=== PATIENT | female | born 1980 | race Caucasian/White ===

== ENCOUNTER 2018-06-21 09:46 | Emergency (ER) | payer BC ==
[~2018-06-21] VITALS: Ht 175.3 cm; Wt 102.1 kg
[2018-06-21] MEDS ORDERED: fentaNYL INJECTION 100 MCG/2 ML AMP IVP STA ×2 (09:58→13:00)
[2018-06-21] MEDS ORDERED: NS IV 1000 ML 1,000 ML IV STA (09:58)
[2018-06-21] MEDS ORDERED: ONDANSETRON 4 MG/2 ML (SDV) Z0FRAN IVP ONE ×2 (10:00→12:00)
--- NOTE | 2018-06-21 10:14 | ED Abdominal Pain ---
General Chief Complaint: Abdominal/GI Problems Stated Complaint: VOMITING; SUPRAPUBIC PAIN Nursing Triage Note: Rt sided abdominal pain, nausea and vomiting. Intense pain started this morning at 0630 but has been having dull pain for 3 weeks. Has taken hydrocodone and ibuprofen for pain. LMP 3 weeks ago. Sepsis Screen: No Definite Risk Source of Information: Patient Exam Limitations: No Limitations History of Present Illness Date Seen by Provider: Jun 21, 2018 Time Seen by Provider: 09:55 Initial Comments Here with report of severe right lower quadrant abdominal pain that radiates to her back that started this morning about 6:30 and has progressed since. She did take ibuprofen and hydrocodone. Last menstrual period was 3 weeks ago. States that she's had dental pain for the last few weeks. Does have history of ovarian cysts and states that usually feel like this. She has vomited twice since arrival to the emergency department. Does have history of total colectomy and appendectomy. States that she is not sexually active and denies vaginal discharge or bleeding. She is not currently on control. She follows with Dr. Khan and is due to have appointment with gynecology at sometime in the future. This appointment has not been set yet. Timing/Duration: 4-6 Hours, Changing Over Time, Getting Worse Severity/Quality: Moderate, Severe, Aching, Cramping Location: RLQ Radiation: Back, Flank Activities at Onset: None Modifying Factors: Worsens With Movement; Improves With Resting Associated Symptoms: No Back Pain, No Chest Pain, No Fever/Chills; Nausea/ Vomiting; No Shortness of Air, No Weakness Allergies and Home Medications Allergies Coded Allergies: metoclopramide (Verified Allergy, Unknown, 06/21/18) prochlorperazine (Verified Allergy, Unknown, 06/21/18) promethazine (Verified Allergy, Unknown, 06/21/18) Home Medications Hydrocodone Bit/Acetaminophen 1 Ea Tablet, 1 EACH PO Q4H Prescribed by: BOBBY PAGAN on 06/21/18 1306 Ondansetron 4 Mg Tab.rapdis, 4 MG PO Q6H PRN for NAUSEA/VOMITING Prescribed by: BOBBY PAGAN on 06/21/18 1306 Patient Home Medication List Home Medication List Reviewed: Yes Review of Systems Review of Systems Constitutional: see HPI; No chills, No fever EENTM: No Symptoms Reported Respiratory: No Symptoms Reported Cardiovascular: Denies Chest Pain Gastrointestinal: Abdominal Pain, Nausea; Denies Rectal Bleeding; Vomiting Genitourinary: No Symptoms Reported Musculoskeletal: see HPI; No joint pain, No muscle pain Skin: no symptoms reported Psychiatric/Neurological: No Symptoms Reported All Other Systems Reviewed Negative Unless Noted: Yes Past Qqffoxz-Jdwbbe-Jzwyuv Hx Patient Social History Alcohol Use: Occasionally Uses Recreational Drug Use: No Smoking Status: Never a Smoker Recent Foreign Travel: No Contact w/Someone Who Travel: No Recent Infectious Disease Expo: No Past Medical History Surgeries: Yes Abdominal (total colectomy), Appendectomy Respiratory: No Cardiac: No Neurological: No Reproductive Disorders: Yes Female Reproductive Disorders: Ovarian Cyst Genitourinary: Yes Kidney Stones Gastrointestinal: Yes Musculoskeletal: No Endocrine: No HEENT: No Psychosocial: Yes Anxiety Family Medical History No Pertinent Family Hx Physical Exam Vital Signs Vital Signs - First Documented 06/21/18 09:53 Temp 97.0 Pulse 84 Resp 20 B/P (MAP) 139/86 (103) Pulse Ox 96 Capillary Refill : Less Than 3 Seconds Height/Weight/BMI Height: 5'9.00" Weight: 225lbs. oz. 102.957345li; BMI Method:Stated General Appearance: WD/WN, no apparent distress HEENT: PERRL/EOMI, pharynx normal Neck: full range of motion, supple Respiratory: lungs clear, normal breath sounds Cardiovascular: regular rate, rhythm, no murmur Gastrointestinal: soft; No guarding, No rebound; tenderness (right lower quadrant) Extremities: non-tender, normal inspection Back: normal inspection, no CVA tenderness, no vertebral tenderness Neurologic/Psychiatric: alert, oriented x 3 Skin: normal color, warm/dry Progress/Results/Core Measures Results/Orders Lab Results Laboratory Tests Test 06/21/18 10:00 06/21/18 11:41 Range/Units White Blood Count 10.6 4.3-11.0 10^3/uL Red Blood Count 5.07 4.35-5.85 10^6/uL Hemoglobin 14.7 11.5-16.0 G/DL Hematocrit 44 35-52 % Mean Corpuscular Volume 86 80-99 FL Mean Corpuscular Hemoglobin 29 25-34 PG Mean Corpuscular Hemoglobin Concent 34 32-36 G/DL Red Cell Distribution Width 13.2 10.0-14.5 % Platelet Count 210 130-400 10^3/uL Mean Platelet Volume 11.7 H 7.4-10.4 FL Neutrophils (%) (Auto) 79 H 42-75 % Lymphocytes (%) (Auto) 14 12-44 % Monocytes (%) (Auto) 5 0-12 % Eosinophils (%) (Auto) 1 0-10 % Basophils (%) (Auto) 1 0-10 % Neutrophils # (Auto) 8.4 H 1.8-7.8 X 10^3 Lymphocytes # (Auto) 1.4 1.0-4.0 X 10^3 Monocytes # (Auto) 0.6 0.0-1.0 X 10^3 Eosinophils # (Auto) 0.1 0.0-0.3 10^3/uL Basophils # (Auto) 0.1 0.0-0.1 10^3/uL Sodium Level 138 135-145 MMOL/L Potassium Level 4.0 3.6-5.0 MMOL/L Chloride Level 101 98-107 MMOL/L Carbon Dioxide Level 22 21-32 MMOL/L Anion Gap 15 H 5-14 MMOL/L Blood Urea Nitrogen 13 7-18 MG/DL Creatinine 0.80 0.60-1.30 MG/DL Estimat Glomerular Filtration Rate > 60 BUN/Creatinine Ratio 16 Glucose Level 131 H 70-105 MG/DL Calcium Level 9.2 8.5-10.1 MG/DL Corrected Calcium 8.8 8.5-10.1 MG/DL Total Bilirubin 0.7 0.1-1.0 MG/DL Aspartate Amino Transf (AST/SGOT) 18 5-34 U/L Alanine Aminotransferase (ALT/SGPT) 22 0-55 U/L Alkaline Phosphatase 83 40-136 U/L Total Protein 7.3 6.4-8.2 GM/DL Albumin 4.5 3.2-4.5 GM/DL Serum Test, Qualitative NEGATIVE NEGATIVE Urine Color YELLOW Urine Clarity CLEAR Urine pH 8.5 5-9 Urine Specific Perry 1.015 L 1.016-1.022 Urine Protein NEGATIVE NEGATIVE Urine Glucose (UA) NEGATIVE NEGATIVE Urine Ketones 1+ H NEGATIVE Urine Nitrite NEGATIVE NEGATIVE Urine Bilirubin NEGATIVE NEGATIVE Urine Urobilinogen 0.2 NORMAL MG/DL Urine Leukocyte Esterase TRACE H NEGATIVE Urine RBC (Auto) NEGATIVE NEGATIVE Urine RBC NONE /HPF Urine WBC 5-10 H /HPF Urine Squamous Epithelial Cells 25-50 H /HPF Urine Crystals NONE /LPF Urine Bacteria FEW H /HPF Urine Casts NONE /LPF Urine Mucus MODERATE H /LPF Urine Culture Indicated YES My Orders Orders - BOBBY PAGAN MD Cbc With Automated Diff (06/21/18 09:58) Comprehensive Metabolic Panel (06/21/18 09:58) Hcg,Qualitative Serum (06/21/18 09:58) Ua Culture If Indicated (06/21/18 09:58) Ondansetron Injection (Zofran Injectio (06/21/18 10:00) Ns Iv 1000 Ml (Sodium Chloride 0.9%) (06/21/18 09:58) Saline Lock/Iv-Start (06/21/18 09:58) Fentanyl Injection (Sublimaze Injection (06/21/18 09:58) Us Non Ob Pelvis Comp/Transvag (06/21/18 09:58) Hs C Reactive Protein (06/21/18 10:00) Hydromorphone Injection (Dilaudid Inject (06/21/18 10:45) Ketorolac Injection (Toradol Injection) (06/21/18 11:14) Hydromorphone Injection (Dilaudid Inject (06/21/18 11:15) Ondansetron Injection (Zofran Injectio (06/21/18 12:00) Urine Culture (06/21/18 11:41) Fentanyl Injection (Sublimaze Injection (06/21/18 13:00) Medications Given in ED Current Medications Medications Dose Ordered Sig/Davis Route Start Time Stop Time Status Last Admin Dose Admin Hydromorphone HCl 0.5 mg ONCE ONCE IV 06/21/18 10:45 06/21/18 10:46 DC 06/21/18 10:38 0.5 MG Hydromorphone HCl 0.5 mg ONCE ONCE IV 06/21/18 11:15 06/21/18 11:16 DC 06/21/18 11:27 0.5 MG Ondansetron HCl 4 mg ONCE ONCE IVP 06/21/18 10:00 06/21/18 10:01 DC 06/21/18 10:07 4 MG Ondansetron HCl 4 mg ONCE ONCE IVP 06/21/18 12:00 06/21/18 12:01 DC 06/21/18 12:05 4 MG Vital Signs/I&O 06/21/18 09:53 Temp 97.0 Pulse 84 Resp 20 B/P (MAP) 139/86 (103) Pulse Ox 96 Blood Pressure Mean: 103 Progress Progress Note : Progress Note Seen and evaluated. IV, labs, UA, hCG via serum, ultrasound pelvis ordered. Zofran 4 mg IV, normal saline 1 L bolus and fentanyl 75 g IV ordered. Monitor patient. Patient with continued pain. Dilaudid 0.5 mg IV ordered. 1153: Patient doing a little better with respect to pain but has nausea again. Ultrasound does show complex ovarian cyst that is likely hemorrhagic. Zofran 4 mg IV ordered. 1300: We will repeat fentanyl 75 g IV. Ovarian cyst noted on ultrasound and discussed with the patient. She would like to try this at home with respect to treatment and follow-up with gynecology. She is asked for names of medical device engineer which will be given at discharge. Mother is in room with her and will stay with her. We will write a small prescription for pain medicine as well as nausea medicine. Discharged home with return precautions. Patient and family verbalize understanding instructions and agreement with plan. Diagnostic Imaging Diagonstic Imaging: Ultrasound Plain Films/CT/US/NM/MRI: pelvis Comments [facility], [place] NAME: FLACOASHLEY [facility] REC#: [id number] PT STATUS: REG ER : 1980 PHYSICIAN: BOBBY PAGAN MD ADMIT DATE: 06/21/18/ER FS Draft Date of Exam:06/21/18 US NON OB PELVIS COMP/TRANSVAG PROCEDURE: US Non-OB pelvis comp/trans. TECHNIQUE: Multiple realtime grayscale images were obtained of the pelvis in various projections endovaginally. Transabdominal imaging was also performed. INDICATION: Right-sided pelvic pain. FINDINGS: The uterus measures 8.8 x 6.7 x 4.4 cm. Endometrium is approximately 8 mm in thickness. No myometrial mass is identified. Left ovary was not visualized. The right ovary is enlarged with multiple follicles. In addition, there is a complex cystic mass measuring approximately 3.5 x 3.8 cm, likely ovarian cyst. There is blood flow to the right ovary. No free fluid is seen. IMPRESSION: 1. Nonvisualized left ovary. 2. Complex right ovarian cyst, 3.8 cm in size, suggestive of a hemorrhagic cyst. No other significant abnormality is detected. Dictated on workstation # [id number] Dict: 06/21/18 1136 Trans: 06/21/18 1140 [id number] Interpreted by: PACO GUO MD Electronically signed by: Departure Impression Primary Impression: Ovarian cyst Qualified Codes: N83.201 - Unspecified ovarian cyst, right side Disposition: 01 HOME, SELF-CARE Condition: Stable Departure-Patient Inst. Decision time for Depature: 13:04 Referrals: ABELINO KHAN MD (PCP) Primary Care Physician CHET,LOCAL PHYSICIAN (Family) Primary Care Physician ISIAH ROSE DENNIS G MD SHAW, ANGELA C DO Patient Instructions: Ovarian Cyst (DC), Acute Abdomen (Belly Pain), Adult (DC) Add. Discharge Instructions: All discharge instructions reviewed with patient and/or family. Voiced understanding. Call and make appointment with medical device engineer of your choice for appointment within one week. You do have fairly prominent ovarian cyst on the right. You may follow up with your doctor as well. Return for worse pain, vomiting, weakness, breathing problems or other concerns as needed. You may take ibuprofen 800 mg every 8 hours as needed for pain. If you're not taking the prescribed pain medicine, you may take Tylenol/acetaminophen 1000 mg every 8 hours as needed for pain. Drink plenty of fluids. Scripts Ondansetron (Ondansetron Odt) 4 Mg Tab.rapdis 4 MG PO Q6H PRN for NAUSEA/VOMITING, #12 TAB 0 Refills Prov: BOBBY PAGAN MD 06/21/18 Hydrocodone Bit/Acetaminophen (LORTAB 7.5 MG TABLET) 1 Ea Tablet 1 EACH PO Q4H, #8 TAB 0 Refills Prov: BOBBY PAGAN MD 06/21/18 Copy Copies To 1: ABELINO KHAN MD, TIMOTHY D MD Jun 21, 2018 10:14
[2018-06-21 10:18] LABS: HEMATOCRIT 44 % (35-52); HEMOGLOBIN 14.7 G/DL (11.5-16.0); MEAN CORPUSCULAR HEMOGLOBIN 29 PG (25-34); MEAN CORPUSCULAR HGB CONC 34 G/DL (32-36); MEAN CORPUSCULAR VOLUME 86 FL (80-99); MEAN PLATELET VOLUME 11.7 FL (7.4-10.4); PLATELET COUNT 210 10^3/uL (130-400); RED CELL DISTRIBUTION WIDTH 13.2 % (10.0-14.5); WHITE BLOOD COUNT 10.6 10^3/uL (4.3-11.0)
[2018-06-21 10:19] LABS: BASOPHILS # (AUTO) 0.1 10^3/uL (0.0-0.1); BASOPHILS % (AUTO) 1 % (0-10); EOSINOPHILS # (AUTO) 0.1 10^3/uL (0.0-0.3); EOSINOPHILS % (AUTO) 1 % (0-10); LYMPHOCYTES # (AUTO) 1.4 X 10^3 (1.0-4.0); LYMPHOCYTES % (AUTO) 14 % (12-44); MONOCYTES # (AUTO) 0.6 X 10^3 (0.0-1.0); MONOCYTES % (AUTO) 5 % (0-12); NEUTROPHILS # (AUTO) 8.4 X 10^3 (1.8-7.8); NEUTROPHILS % (AUTO) 79 % (42-75)
[2018-06-21 10:34] LABS: ALANINE AMINOTRANSFERASE 22 U/L (0-55); ALBUMIN 4.5 GM/DL (3.2-4.5); ALKALINE PHOSPHATASE 83 U/L (40-136); BILIRUBIN,TOTAL 0.7 MG/DL (0.1-1.0); BUN/CREATININE RATIO 16; CALCIUM 9.2 MG/DL (8.5-10.1); CARBON DIOXIDE 22 MMOL/L (21-32); CHLORIDE 101 MMOL/L (98-107); GFR ESTIMATED > 60; GLUCOSE 131 MG/DL (70-105); SODIUM 138 MMOL/L (135-145); TOTAL PROTEIN 7.3 GM/DL (6.4-8.2)
[2018-06-21] MEDS ORDERED: HYDROmorphone 2 MG/ML VIAL (DILAUDID) IV ONE ×2 (10:45→11:15)
[2018-06-21] MEDS ORDERED: KETOROLAC 30 MG/ML VIAL IVP STA (11:14)
--- NOTE | 2018-06-21 11:41 | Diagnostic Imaging Report ---
PROCEDURE: US Non-OB pelvis comp/trans. TECHNIQUE: Multiple realtime grayscale images were obtained of the pelvis in various projections endovaginally. Transabdominal imaging was also performed. INDICATION: Right-sided pelvic pain. FINDINGS: The uterus measures 8.8 x 6.7 x 4.4 cm. Endometrium is approximately 8 mm in thickness. No myometrial mass is identified. Left ovary was not visualized. The right ovary is enlarged with multiple follicles. In addition, there is a complex cystic mass measuring approximately 3.5 x 3.8 cm, likely ovarian cyst. There is blood flow to the right ovary. No free fluid is seen. IMPRESSION: 1. Nonvisualized left ovary. 2. Complex right ovarian cyst, 3.8 cm in size, suggestive of a hemorrhagic cyst. No other significant abnormality is detected. Dictated by: Dictated on workstation # [id number]
[2018-06-21 12:07] LABS: CLARITY,URINE CLEAR; COLOR,URINE YELLOW
[2018-06-21 12:08] LABS: BILIRUBIN,URINE NEGATIVE (NEGATIVE); GLUCOSE, URINE (UA) NEGATIVE (NEGATIVE); KETONES,URINE 1+ (NEGATIVE); LEUKOCYTE ESTERASE ,URINE TRACE (NEGATIVE); NITRITE,URINE NEGATIVE (NEGATIVE); PH,URINE 8.5 (5-9); PROTEIN,URINE NEGATIVE (NEGATIVE); UROBILINOGEN,URINE 0.2 MG/DL (NORMAL)
[2018-06-21 12:09] LABS: BACTERIA,URINE FEW /HPF; SQUAMOUS EPITHELIAL CELL,UR 25-50 /HPF
[2018-06-21] MEDS ORDERED: ONDA4TAB11 PO (13:06)
[2018-06-21] MEDS ORDERED: HYDR-34 PO (13:06)
[2018-06-21 13:36] VITALS: BP 101/50
[2018-06-21] MEDS ORDERED: SERT50TA9 (19:52)
[2018-06-21] MEDS ORDERED: LISI10TA2 (19:52)
[2018-06-22] MEDS ORDERED: IBUP-1780 PO (12:00)
[2018-06-22] MEDS ORDERED: OXYC1TAB12 PO (12:01)
== END 2018-06-21 13:38 | disposition home or self-care (01) ==
LOC: EDUNIT# 09:46 → ER FS 09:49
DX: N83.201 Unspecified ovarian cyst, right side (principal); F41.9 Anxiety disorder, unspecified; Z90.49 Acquired absence of other specified parts of digestive tract; Z88.8 Allergy status to other drugs, medicaments and biological substances; Z87.442 Personal history of urinary calculi; Z87.448 Personal history of other diseases of urinary system
CPT/HCPCS: 36415; 76830; 76856; 80053; 81000; 84703; 85025; 86141; 87088; 96361; 96374; 96375; 96376

== ENCOUNTER 2018-06-21 19:06 | Observation (INO) | payer BC ==
[~2018-06-21] VITALS: Ht 175.3 cm; Wt 104.3 kg
[~2018-06-21 19:06] MED LIST: HYDR-34 PO; ONDA4TAB11 PO
[2018-06-21] MEDS ORDERED: LACTATED RINGERS 1,000 ML IV ONE ×2 (19:49→22:27)
[2018-06-21] MEDS ORDERED: KETOROLAC 30 MG/ML VIAL IVP STA (19:49)
[2018-06-21] MEDS ORDERED: SERT50TA9 (19:52)
[2018-06-21] MEDS ORDERED: LISI10TA2 (19:52)
--- NOTE | 2018-06-21 19:57 | ED Abdominal Pain ---
General Chief Complaint: Abdominal/GI Problems Stated Complaint: OVARIAN CYST,PAINFUL Source of Information: Patient History of Present Illness Date Seen by Provider: Jun 21, 2018 Time Seen by Provider: 19:45 Initial Comments PT ARRIVES VIA POV FROM HOME C/O SEVERE RLQ PAIN SINCE 0700 THIS AM PAIN RADIATES TO RIGHT FLANK WAS SEEN IN [facility] EARLI[facility] TODAY AND WAS DX WITH RIGHT OVARIAN CYST--HAD PELVIC ULTRASOUND AND LAB DONE. WAS GIVEN LARGE AMOUNTS OF PAIN MEDICATION IN ER AND GIVEN RX FOR HYDROCODONE AND TOLD TO COME HERE IF SYMPTOMS WORSENED C/O NAUSEA AND VOMITING--EMESIS X 10-12. NO RELIEF WITH ZOFRAN AT 1700 NO FEVER NO URINARY SYMPTOMS PT HAS HAD SAME MULTIPLE TIMES--PT STATES SHE HAS PCOS AND HER OVARIES ALWAYS HURT PT HAS HAD COMPLETE COLECTOMY FOR "BOWEL MUSCLES DIDN'T WORK" --TOXIC MEGACOLON PT HAS ALSO HAD APPY PT ALSO HAS HISTORY OF KIDNEY STONES LMP 05/31/18--PERIODS ALWAYS IRREGULAR. NO CONTROL Allergies and Home Medications Allergies Coded Allergies: metoclopramide (Verified Allergy, Unknown, 06/21/18) prochlorperazine (Verified Allergy, Unknown, 06/21/18) promethazine (Verified Allergy, Unknown, 06/21/18) Home Medications Hydrocodone Bit/Acetaminophen 1 Ea Tablet, 1 EACH PO Q4H Prescribed by: BOBBY PAGAN on 06/21/18 1306 Ondansetron 4 Mg Tab.rapdis, 4 MG PO Q6H PRN for NAUSEA/VOMITING Prescribed by: BOBBY PAGAN on 06/21/18 1306 Patient Home Medication List Home Medication List Reviewed: Yes Review of Systems Review of Systems Constitutional: no symptoms reported Respiratory: No Symptoms Reported Cardiovascular: No Symptoms Reported Gastrointestinal: See HPI, Abdominal Pain, Nausea, Vomiting Genitourinary: See HPI, Flank Pain Musculoskeletal: back pain Skin: no symptoms reported Psychiatric/Neurological: No Symptoms Reported Endocrine: No Symptoms Reported Hematologic/Lymphatic: No Symptoms Reported Past Uzpdmgf-Wzdsyl-Ngrwnd Hx Patient Social History Alcohol Use: Denies Use Recreational Drug Use: No Smoking Status: Never a Smoker 2nd Hand Smoke Exposure: No Recent Foreign Travel: No Contact w/Someone Who Travel: No Past Medical History Surgeries: Yes (COMPLETE COLECTOMY FOR TOXIC MEGACOLON; KIDNEY STONE REMOVAL) Abdominal, Appendectomy, Bowel Surgery, Renal Respiratory: No Cardiac: Yes Hypertension Neurological: No : No Reproductive Disorders: Yes Female Reproductive Disorders: Ovarian Cyst, Polycystic Ovarian Dis Genitourinary: Yes Kidney Stones Gastrointestinal: Yes (TOXIC MEGACOLON-S/P COMPLETE COLECTOMY AND APPY) Musculoskeletal: No Endocrine: No HEENT: No Cancer: No Psychosocial: Yes Anxiety, Depression Integumentary: No Blood Disorders: No Family Medical History No Pertinent Family Hx Physical Exam Vital Signs Vital Signs - First Documented 06/21/18 19:43 Temp 97.4 Pulse 82 Resp 16 B/P (MAP) 118/72 (87) Pulse Ox 99 O2 Delivery Room Air Capillary Refill : Height/Weight/BMI Height: 5'9.00" Weight: 225lbs. oz. 102.856443hg; BMI Method:Stated General Appearance: no apparent distress (BUT LOOKS UNCOMFORTABLE--SITTING ON EDGE OF BED, SLIGHTLY BENT AT WAIST), obese Respiratory: normal breath sounds, no respiratory distress, no accessory muscle use Cardiovascular: regular rate, rhythm, no murmur Gastrointestinal: normal bowel sounds, soft, no organomegaly, no pulsatile mass ; No distended; guarding; No rebound; tenderness (RLQ AND RIGHT FLANK); No hernia, No mass Extremities: normal inspection Back: CVA tenderness (R) Neurologic/Psychiatric: closing coordinator II-XII nml as tested, no motor/sensory deficits, alert, normal mood/affect, oriented x 3 Skin: normal color, warm/dry; No rash Progress/Results/Core Measures Results/Orders Lab Results Laboratory Tests Test 06/21/18 20:00 Range/Units White Blood Count 13.4 H 4.3-11.0 10^3/uL Red Blood Count 4.94 4.35-5.85 10^6/uL Hemoglobin 14.2 11.5-16.0 G/DL Hematocrit 42 35-52 % Mean Corpuscular Volume 85 80-99 FL Mean Corpuscular Hemoglobin 29 25-34 PG Mean Corpuscular Hemoglobin Concent 34 32-36 G/DL Red Cell Distribution Width 13.6 10.0-14.5 % Platelet Count 207 130-400 10^3/uL Mean Platelet Volume 11.6 H 7.4-10.4 FL Neutrophils (%) (Auto) 92 H 42-75 % Lymphocytes (%) (Auto) 5 L 12-44 % Monocytes (%) (Auto) 4 0-12 % Eosinophils (%) (Auto) 0 0-10 % Basophils (%) (Auto) 0 0-10 % Neutrophils # (Auto) 12.3 H 1.8-7.8 X 10^3 Lymphocytes # (Auto) 0.6 L 1.0-4.0 X 10^3 Monocytes # (Auto) 0.5 0.0-1.0 X 10^3 Eosinophils # (Auto) 0.0 0.0-0.3 10^3/uL Basophils # (Auto) 0.0 0.0-0.1 10^3/uL Neutrophils % (Manual) 91 % Lymphocytes % (Manual) 2 % Monocytes % (Manual) 5 % Eosinophils % (Manual) 0 % Basophils % (Manual) 0 % Band Neutrophils 1 % Reactive Lymphocytes 1 % Blood Morphology Comment NORMAL Prothrombin Time 12.9 12.2-14.7 SEC INR Comment 0.9 0.8-1.4 Activated Partial Thromboplast Time 31 24-35 SEC Sodium Level 139 135-145 MMOL/L Potassium Level 3.9 3.6-5.0 MMOL/L Chloride Level 107 98-107 MMOL/L Carbon Dioxide Level 22 21-32 MMOL/L Anion Gap 10 5-14 MMOL/L Blood Urea Nitrogen 14 7-18 MG/DL Creatinine 0.83 0.60-1.30 MG/DL Estimat Glomerular Filtration Rate > 60 BUN/Creatinine Ratio 17 Glucose Level 121 H 70-105 MG/DL Calcium Level 9.5 8.5-10.1 MG/DL Corrected Calcium 9.2 8.5-10.1 MG/DL Total Bilirubin 0.8 0.1-1.0 MG/DL Aspartate Amino Transf (AST/SGOT) 19 5-34 U/L Alanine Aminotransferase (ALT/SGPT) 25 0-55 U/L Alkaline Phosphatase 81 40-136 U/L Total Protein 7.2 6.4-8.2 GM/DL Albumin 4.4 3.2-4.5 GM/DL Amylase Level 55 25-125 U/L Lipase 37 8-78 U/L Serum Test, Qualitative NEGATIVE NEGATIVE My Orders Orders - JOHANNE MARTINEZ DO Amylase (06/21/18 19:49) Cbc With Automated Diff (06/21/18 19:49) Comprehensive Metabolic Panel (06/21/18 19:49) Drug Screen Stat (Urine) (06/21/18 19:49) Hcg,Qualitative Serum (06/21/18 19:49) Lipase (06/21/18 19:49) Protime With Inr (06/21/18 19:49) Partial Thromboplastin Time (06/21/18 19:49) Ua Culture If Indicated (06/21/18 19:49) Ct Abd/Pelvis Wo(Kidney Stone) (06/21/18 19:49) Saline Lock/Iv-Start (06/21/18 19:49) Lactated Ringers (Lr 1000 Ml Iv Solution (06/21/18 19:49) Ketorolac Injection (Toradol Injection) (06/21/18 19:49) Ondansetron Injection (Zofran Injectio (06/21/18 20:00) Abdomen/Kub 1view (06/21/18 19:55) Manual Differential (06/21/18 20:00) Fentanyl Injection (Sublimaze Injection (06/21/18 20:45) Medications Given in ED Current Medications Medications Dose Ordered Sig/Davis Route Start Time Stop Time Status Last Admin Dose Admin Fentanyl Citrate 50 mcg ONCE ONCE IVP 06/21/18 20:45 06/21/18 23:17 DC 06/21/18 20:48 50 MCG Lactated Ringer's 1,000 ml @ 0 mls/hr Q0M ONCE IV 06/21/18 19:49 06/21/18 19:52 DC 06/21/18 20:05 0 MLS/HR Ondansetron HCl 8 mg ONCE ONCE IVP 06/21/18 20:00 06/21/18 20:01 DC 06/21/18 20:05 8 MG Vital Signs/I&O 06/21/18 06/21/18 19:43 20:05 Temp 97.4 97.4 Pulse 82 Resp 16 B/P (MAP) 118/72 (87) Pulse Ox 99 O2 Delivery Room Air 06/22/18 00:00 Intake Total 1000 ml Balance 1000 ml Progress Progress Note : Progress Note PAIN IMPROVED AT TIME OF ADMIT Diagnostic Imaging Comments CT ABDOMEN/PELVIS--LARGE COMPLEX MASS IN RIGHT ADNEXA 9.5 X 5.9 CM, CANNOT R/O MALIGNANCY--PER RADIOLOGIST REPORT Reviewed: Reviewed by Me Departure Communication (Admissions) [id number]--SPOKE WITH DR. ALVES, OCCASIONAL BABYSITTER LIGHTING ENGINEER. ACCEPTS PT FOR ADMIT. ADVISES LEVEL VIAL SEALER PUMP. Impression Primary Impression: RIGHT ADNEXAL MASS Additional Impression: Intractable pain Disposition: ADMITTED INPATIENT Condition: Improved Admissions Decision to Admit Reason: Admit from ER (General) Decision to Admit/Date: Jun 21, 2018 Time/Decision to Admit Time: 21:35 Departure-Patient Inst. Referrals: ABELINO KHAN MD (PCP/Family) Primary Care Physician JOHANNE MARTINEZ DO Jun 21, 2018 19:57
[2018-06-21] MEDS ORDERED: ONDANSETRON 4 MG/2 ML (SDV) Z0FRAN IVP ONE (20:00)
[2018-06-21 20:14] LABS: BASOPHILS % (AUTO) 0 % (0-10); EOSINOPHILS % (AUTO) 0 % (0-10); HEMATOCRIT 42 % (35-52); HEMOGLOBIN 14.2 G/DL (11.5-16.0); LYMPHOCYTES # (AUTO) 0.6 X 10^3 (1.0-4.0); LYMPHOCYTES % (AUTO) 5 % (12-44); MEAN CORPUSCULAR HEMOGLOBIN 29 PG (25-34); MEAN CORPUSCULAR HGB CONC 34 G/DL (32-36); MEAN CORPUSCULAR VOLUME 85 FL (80-99); MEAN PLATELET VOLUME 11.6 FL (7.4-10.4); MONOCYTES # (AUTO) 0.5 X 10^3 (0.0-1.0); MONOCYTES % (AUTO) 4 % (0-12); NEUTROPHILS # (AUTO) 12.3 X 10^3 (1.8-7.8); NEUTROPHILS % (AUTO) 92 % (42-75); PLATELET COUNT 207 10^3/uL (130-400); RED CELL DISTRIBUTION WIDTH 13.6 % (10.0-14.5); WHITE BLOOD COUNT 13.4 10^3/uL (4.3-11.0)
[2018-06-21 20:25] LABS: BAND NEUTROPHILS 1 %; BASOPHILS % (MANUAL) 0 %; EOSINOPHILS % (MANUAL) 0 %; INR 0.9 (0.8-1.4); LYMPHOCYTES % (MANUAL) 2 %; MONOCYTES % (MANUAL) 5 %; NEUTROPHILS % (MANUAL) 91 %; PROTHROMBIN TIME PATIENT 12.9 SEC (12.2-14.7); RBC MORPH NORMAL; REACTIVE LYMPHOCYTES 1 %
[2018-06-21 20:32] LABS: ALANINE AMINOTRANSFERASE 25 U/L (0-55); ALBUMIN 4.4 GM/DL (3.2-4.5); ALKALINE PHOSPHATASE 81 U/L (40-136); AMYLASE 55 U/L (25-125); BILIRUBIN,TOTAL 0.8 MG/DL (0.1-1.0); BUN/CREATININE RATIO 17; CALCIUM 9.5 MG/DL (8.5-10.1); CARBON DIOXIDE 22 MMOL/L (21-32); CHLORIDE 107 MMOL/L (98-107); CREATININE SERUM 0.83 MG/DL (0.60-1.30); GFR ESTIMATED > 60; GLUCOSE 121 MG/DL (70-105); LIPASE 37 U/L (8-78); POTASSIUM 3.9 MMOL/L (3.6-5.0); SODIUM 139 MMOL/L (135-145); TOTAL PROTEIN 7.2 GM/DL (6.4-8.2)
[2018-06-21] MEDS ORDERED: fentaNYL INJECTION 100 MCG/2 ML AMP IVP ONE (20:45)
--- NOTE | 2018-06-21 21:02 | Diagnostic Imaging Report ---
INDICATION: Right-sided flank pain, history of kidney stones FINDINGS: Supine view of the abdomen demonstrates mildly dilated loops of small bowel in the right flank. Bowel gas pattern is otherwise normal. Osseous structures are normal. Small phleboliths are present in the pelvis. IMPRESSION: There are mildly dilated loops of small bowel. Dictated by: Dictated on workstation # [id number]
--- NOTE | 2018-06-21 21:14 | Diagnostic Imaging Report ---
PROCEDURE: CT urinary tract, rule out kidney stone. TECHNIQUE: Multiple contiguous axial images were obtained through the abdomen and pelvis without the use of intravenous contrast. Auto Exposure Controls were utilized during the CT exam to meet ALARA standards for radiation dose reduction. INDICATION: Right flank pain, previous partial colectomy due to toxic bowel. Patient states history of kidney stones COMPARISON STUDY: KUB from earlier today. FINDINGS: The lung bases are clear. The liver, gallbladder, spleen, pancreas, and adrenal glands appear normal. There is a 2-3 mm calculi in the lower pole of the right kidney with no hydronephrosis or inflammation. The left kidney is normal. No calculi are seen in the ureters or urinary bladder. The uterus appears normal. In the right adnexa, there is a complex mass with some cysts within it. There is a large solid component to it also. This measures 9.5 x 5.9 cm. Malignancy cannot be excluded. No ascites or peritoneal implants are present. The bowel anastomosis seen in the sigmoid colon. Bowel is otherwise unremarkable. There is no ascites, free air or abnormal adenopathy. IMPRESSION: There is a mass in the left adnexa. Ovarian carcinoma cannot be excluded. No evidence of metastatic disease is present. Dictated by: Dictated on workstation # [id number]
[2018-06-21 22:00] VITALS: BP 131/72
--- NOTE | 2018-06-21 22:00 | NUR ---
ASHLEY SAM presented to unit via w'c from ED, accompanied by mother, with c/o RLQ PAIN, R ADNEXAL MASS. ASHLEY SAM weighed, gowned, voided, and to bed. EFHM and TOCO applied, VS taken. ASHLEY SAM oriented to bed controls, call light, TV, heat, and A/C controls.
--- NOTE | 2018-06-21 22:10 | NUR ---
assessment completed. pt c/o right lower quadrant pain and tenderness. pt states she was seen in [place] ED this am and was discharged. Pain started to increase tonight with nausea/vomiting. pt denies any other symptoms.
--- NOTE | 2018-06-21 22:14 | NUR ---
called to verify orders
[2018-06-21] MEDS ORDERED: lisINopril 10 MG (PRINIVIL) TABLET ONE (22:29)
[2018-06-21] MEDS ORDERED: fentaNYL INJECTION 5,000 MCG in EMPTY IV BAG (PVC) 1 EA IV SCH (22:45)
[2018-06-21] MEDS ORDERED: FENTANYL IV SCH (22:45)
[2018-06-21] MEDS ORDERED: fentaNYL (OMNICELL DRIP KIT ONLY) 250 MCG/5 ML AMP ONE (22:48)
[2018-06-21] MEDS ORDERED: NS (IVPB) 100 ML ONE (22:52)
[2018-06-21] MEDS: LACTATED RINGERS 1,000 ML IV SCH (23:00)
[2018-06-21] MEDS ORDERED: ZOLPIDEM 5 MG (AMBIEN) TAB PO ONE (23:15)
[2018-06-21] MEDS: fentaNYL INJECTION 100 MCG/2 ML AMP IVP PRN (23:29)
[2018-06-21 23:40] LABS: BILIRUBIN,URINE NEGATIVE (NEGATIVE); CLARITY,URINE CLEAR; COLOR,URINE YELLOW; GLUCOSE, URINE (UA) 3+ (NEGATIVE); KETONES,URINE 4+ (NEGATIVE); LEUKOCYTE ESTERASE ,URINE 2+ (NEGATIVE); NITRITE,URINE NEGATIVE (NEGATIVE); PH,URINE 6 (5-9); PROTEIN,URINE 2+ (NEGATIVE); UROBILINOGEN,URINE NORMAL (NORMAL)
[2018-06-21 23:59] LABS: BACTERIA,URINE TRACE /HPF; RBC,URINE RARE /HPF; SQUAMOUS EPITHELIAL CELL,UR 25-50 /HPF; WBC,URINE 0-2 /HPF
[2018-06-22 00:03] LABS: AMPHETAMINE SCREEN, URINE NEGATIVE (NEGATIVE); BENZODIAZEPINES SCREEN URINE NEGATIVE (NEGATIVE); CANNABINOID SCREEN, URINE NEGATIVE (NEGATIVE); COCAINE SCREEN URINE NEGATIVE (NEGATIVE); METHAMPHETAMINE SCREEN URINE S NEGATIVE (NEGATIVE)
[2018-06-22 00:04] LABS: BARBITURATE SCREEN URINE NEGATIVE (NEGATIVE); METHADONE STAT NEGATIVE (NEGATIVE); OPIATE SCREEN URINE POSITIVE (NEGATIVE); OXYCODONE STAT NEGATIVE (NEGATIVE); PROPOXYPHENE STAT NEGATIVE (NEGATIVE); TRICYCLIC ANTIDEPRESSANTS SCRE NEGATIVE (NEGATIVE)
[2018-06-22 03:00] VITALS: BP 89/50
[2018-06-22 06:16] LABS: BASOPHILS % (AUTO) 0 % (0-10); EOSINOPHILS % (AUTO) 0 % (0-10); HEMATOCRIT 36 % (35-52); HEMOGLOBIN 12.2 G/DL (11.5-16.0); LYMPHOCYTES # (AUTO) 1.8 X 10^3 (1.0-4.0); LYMPHOCYTES % (AUTO) 16 % (12-44); MEAN CORPUSCULAR HEMOGLOBIN 29 PG (25-34); MEAN CORPUSCULAR HGB CONC 34 G/DL (32-36); MEAN CORPUSCULAR VOLUME 86 FL (80-99); MEAN PLATELET VOLUME 11.9 FL (7.4-10.4); MONOCYTES # (AUTO) 0.8 X 10^3 (0.0-1.0); MONOCYTES % (AUTO) 7 % (0-12); NEUTROPHILS # (AUTO) 9.1 X 10^3 (1.8-7.8); NEUTROPHILS % (AUTO) 77 % (42-75); PLATELET COUNT 185 10^3/uL (130-400); RED CELL DISTRIBUTION WIDTH 13.5 % (10.0-14.5); WHITE BLOOD COUNT 11.8 10^3/uL (4.3-11.0)
[2018-06-22] MEDS: LACTATED RINGERS 1,000 ML IV SCH (06:21)
[2018-06-22 06:22] VITALS: BP 96/50
[2018-06-22 06:33] LABS: ALANINE AMINOTRANSFERASE 18 U/L (0-55); ALBUMIN 3.5 GM/DL (3.2-4.5); ALKALINE PHOSPHATASE 63 U/L (40-136); BILIRUBIN,TOTAL 0.8 MG/DL (0.1-1.0); BUN/CREATININE RATIO 15; CALCIUM 8.7 MG/DL (8.5-10.1); CARBON DIOXIDE 22 MMOL/L (21-32); CHLORIDE 107 MMOL/L (98-107); CREATININE SERUM 0.71 MG/DL (0.60-1.30); GFR ESTIMATED > 60; GLUCOSE 89 MG/DL (70-105); POTASSIUM 3.5 MMOL/L (3.6-5.0); SODIUM 136 MMOL/L (135-145); TOTAL PROTEIN 5.5 GM/DL (6.4-8.2)
--- NOTE | 2018-06-22 08:17 | NUR ---
pt sleeping with unlabored respirations. mother @ side.
[2018-06-22 08:38] VITALS: BP 118/55
--- NOTE | 2018-06-22 08:38 | NUR ---
initial shift assessment completed, see interventions for further. POC reviewed with pt and family member.
[2018-06-22] MEDS ORDERED: lisINopril 10 MG (PRINIVIL) TABLET PO SCH (09:00)
--- NOTE | 2018-06-22 10:38 | History & Physical-OB/GYN ---
History of Present Illness History of Present Illness Reason for visit/HPI Ms. Narvaez was seen in the Emergency Room for pelvic pain. She was admitted for pain control. While in the ED a CT of her pelvis was performed which demonstrated a large mass (9.5 cm x 5.9 cm). I am unsure of its origin--it doesn't delineate in her CT report. Date of Admission Jun 21, 2018 at 21:35 Date Seen by a Provider: Jun 22, 2018 Time Seen by a Provider: 10:15 I consulted on this patient on 06/22/18 10:33 Attending Physician Roberto Carlos Sorto DO Admitting Physician Genesis Siu MD Consult Allergies and Home Medications Allergies Coded Allergies: metoclopramide (Verified Allergy, Unknown, 06/21/18) prochlorperazine (Verified Allergy, Unknown, 06/21/18) promethazine (Verified Allergy, Unknown, 06/21/18) Home Medications Hydrocodone Bit/Acetaminophen 1 Ea Tablet, 1 EACH PO Q4H Prescribed by: BOBBY PAGAN on 06/21/18 1306 Ondansetron 4 Mg Tab.rapdis, 4 MG PO Q6H PRN for NAUSEA/VOMITING Prescribed by: BOBBY PAGAN on 06/21/18 1306 Patient Home Medication List Home Medication List Reviewed: Yes Past Dmbynol-Bcpglf-Qnykxb Hx Patient Social History Alcohol Use: Denies Use Recreational Drug Use: No Smoking Status: Never a Smoker 2nd Hand Smoke Exposure: No Recent Foreign Travel: No Contact w/other who traveled: No Recent Hopitalizations: No Recent Infectious Disease Expo: No Immunizations Up To Date Tetanus Booster (TDap): Unknown Seasonal Allergies Seasonal Allergies: No Surgeries Yes (COMPLETE COLECTOMY FOR TOXIC MEGACOLON; KIDNEY STONE REMOVAL) Abdominal, Appendectomy, Bowel Surgery, Renal Respiratory No Cardiovascular Yes Hypertension Neurological No Reproductive System : No Hx Reproductive Disorders: Yes Female Reproductive Disorders: Ovarian Cyst, Polycystic Ovarian Dis Genitourinary Yes Kidney Stones Gastrointestinal Yes (TOXIC MEGACOLON-S/P COMPLETE COLECTOMY AND APPY) Musculoskeletal No Endocrine History of Endocrine Disorders: No HEENT History of HEENT Disorders: No Cancer No Psychosocial History of Psychiatric Problem: Yes Behavioral Health Disorders: Anxiety, Depression Integumentary History of Skin or Integumenta: No Blood Transfusions History of Blood Disorders: No Family Medical History Significant Family History: No Pertinent Family Hx Review of Systems Constitutional: no symptoms reported (Pain and nausea) Physical Exam Physical Exam Vital Signs Vital Signs Date Time Temp Pulse Resp B/P (MAP) Pulse Ox O2 Delivery O2 Flow Rate FiO2 06/22/18 08:38 98.7 80 18 118/55 (76) 97 Room Air 06/22/18 06:22 98.1 80 18 96/50 (65) Room Air 06/22/18 03:00 98.1 83 18 89/50 (63) Room Air 06/21/18 22:00 99.2 100 18 131/72 (91) Room Air 06/21/18 21:50 97.6 100 18 109/58 (75) 97 Room Air 06/21/18 20:05 97.4 06/21/18 19:43 97.4 82 16 118/72 (87) 99 Room Air I & O 06/22/18 07:00 Intake Total 1200 ml Output Total 300 ml Balance 900 ml Capillary Refill : Less Than 3 Seconds Labs Laboratory Tests 06/21/18 20:00: White Blood Count 13.4H, Red Blood Count 4.94, Hemoglobin 14.2, Hematocrit 42, Mean Corpuscular Volume 85, Mean Corpuscular Hemoglobin 29, Mean Corpuscular Hemoglobin Concent 34, Red Cell Distribution Width 13.6, Platelet Count 207, Mean Platelet Volume 11.6H, Neutrophils (%) (Auto) 92H, Lymphocytes (%) (Auto) 5L, Monocytes (%) (Auto) 4, Eosinophils (%) (Auto) 0, Basophils (%) (Auto) 0, Neutrophils # (Auto) 12.3H, Lymphocytes # (Auto) 0.6L, Monocytes # (Auto) 0.5, Eosinophils # (Auto) 0.0, Basophils # (Auto) 0.0, Neutrophils % (Manual) 91, Lymphocytes % (Manual) 2, Monocytes % (Manual) 5, Eosinophils % (Manual) 0, Basophils % (Manual) 0, Band Neutrophils 1, Reactive Lymphocytes 1, Blood Morphology Comment NORMAL, Prothrombin Time 12.9, INR Comment 0.9, Activated Partial Thromboplast Time 31, Sodium Level 139, Potassium Level 3.9, Chloride Level 107, Carbon Dioxide Level 22, Anion Gap 10, Blood Urea Nitrogen 14, Creatinine 0.83, Estimat Glomerular Filtration Rate > 60, BUN/Creatinine Ratio 17, Glucose Level 121H, Calcium Level 9.5, Corrected Calcium 9.2, Total Bilirubin 0.8, Aspartate Amino Transf (AST/SGOT) 19, Alanine Aminotransferase ( ALT/SGPT) 25, Alkaline Phosphatase 81, Total Protein 7.2, Albumin 4.4, Amylase Level 55, Lipase 37, Serum Test, Qualitative NEGATIVE 06/21/18 23:30: Urine Color YELLOW, Urine Clarity CLEAR, Urine pH 6, Urine Specific [place] 1.020, Urine Protein 2+H, Urine Glucose (UA) 3+H, Urine Ketones 4+H, Urine Nitrite NEGATIVE, Urine Bilirubin NEGATIVE, Urine Urobilinogen NORMAL, Urine Leukocyte Esterase 2+H, Urine RBC (Auto) 1+H, Urine RBC RARE, Urine WBC 0-2, Urine Squamous Epithelial Cells 25-50H, Urine Crystals NONE, Urine Bacteria TRACE, Urine Casts NONE, Urine Mucus SMALLH, Urine Culture Indicated NO, Urine Opiates Screen POSITIVEH, Urine Oxycodone Screen NEGATIVE, Urine Methadone Screen NEGATIVE, Urine Propoxyphene Screen NEGATIVE, Urine Barbiturates Screen NEGATIVE, Ur Tricyclic Antidepressants Screen NEGATIVE, Urine Phencyclidine Screen NEGATIVE, Urine Amphetamines Screen NEGATIVE, Urine Methamphetamines Screen NEGATIVE, Urine Benzodiazepines Screen NEGATIVE, Urine Cocaine Screen NEGATIVE, Urine Cannabinoids Screen NEGATIVE 06/22/18 05:57: White Blood Count 11.8H, Red Blood Count 4.21L, Hemoglobin 12.2, Hematocrit 36, Mean Corpuscular Volume 86, Mean Corpuscular Hemoglobin 29, Mean Corpuscular Hemoglobin Concent 34, Red Cell Distribution Width 13.5, Platelet Count 185, Mean Platelet Volume 11.9H, Neutrophils (%) (Auto) 77H, Lymphocytes (%) (Auto) 16, Monocytes (%) (Auto) 7, Eosinophils (%) (Auto) 0, Basophils (%) (Auto) 0, Neutrophils # (Auto) 9.1H, Lymphocytes # (Auto) 1.8, Monocytes # (Auto) 0.8, Eosinophils # (Auto) 0.0, Basophils # (Auto) 0.0, Sodium Level 136, Potassium Level 3.5L, Chloride Level 107, Carbon Dioxide Level 22, Anion Gap 7, Blood Urea Nitrogen 11, Creatinine 0.71, Estimat Glomerular Filtration Rate > 60, BUN/ Creatinine Ratio 15, Glucose Level 89, Calcium Level 8.7, Corrected Calcium 9.1 , Total Bilirubin 0.8, Aspartate Amino Transf (AST/SGOT) 15, Alanine Aminotransferase (ALT/SGPT) 18, Alkaline Phosphatase 63, Total Protein 5.5L, Albumin 3.5 Respiratory: Lungs Clear, Normal Breath Sounds, No Accessory Muscle Use, No Respiratory Distress Abdominal: tenderness (Admits to tenderness in the lower right quadrant with deep palpation, no rebound) Pelvic Exam: deferred Extremity: Normal Inspection, Non Tender, No Pedal Edema Assessment/Plan Assessment and Plan Assessment: Pelvic Pain 2. Pelvic Mass 3. Ovarian Cyst Plan: Ms. Narvaez has conflicting reports--she had an Pelvic Ultrasound in [place] which demonstrated a 5 cm cyst yesterday, then last night she had a cyst and pelvic mass (9.5 cm x 5.9 cm) on CT of the Pelvis last night in the ED. I am repeating the ultrasound this morning. She is presently receiving IV pain medication. She is much improved this morning, pain-olivera. We will consider discharging her to home with oral pain medication and a follow up appointment to address surgery as an outpatient depending on the results of her ultrasound this morning. As I explained to Ms. Narvaez and her family we want to address her problems correctly and not a hurried, thoughtless manner. Admission Diagnosis Admission Status: Observation Reason for Inpatient Admission: Pelvic pain and mass ROBERTO CARLOS SORTO DO Jun 22, 2018 10:38
[2018-06-22] MEDS: fentaNYL INJECTION 100 MCG/2 ML AMP IVP PRN (10:43)
--- NOTE | 2018-06-22 10:45 | NUR ---
pt downstairs via w/c with bulk mail technician @ side.
--- NOTE | 2018-06-22 11:22 | NUR ---
pt returned to room via w/c from ultrasound.
--- NOTE | 2018-06-22 11:36 | NUR ---
here. dismissal orders received.
--- NOTE | 2018-06-22 11:39 | Discharge Summary ---
Diagnosis/Chief Complaint Date of Admission Jun 21, 2018 at 21:35 Date of Discharge June 22, 2018 Discharge Date: Jun 22, 2018 Discharge Time: 12:00 Admission Diagnosis Admission Diagnosis Pelvic Pain 2. Large Ovarian Cyst Discharge Diagnosis Pelvic Pain 2. Large Ovarian Cyst Reason Hospital Visit Ms. Narvaez was seen in the Emergency Room for pelvic pain. She was admitted for pain control. While in the ED a CT of her pelvis was performed which demonstrated a large mass (9.5 cm x 5.9 cm). I am unsure of its origin--it doesn't delineate in her CT report. Discharge Summary-OBS Procedures Ultrasound and CT of Pelvis Discharge Physical Examination Allergies: Coded Allergies: metoclopramide (Verified Allergy, Unknown, 06/21/18) prochlorperazine (Verified Allergy, Unknown, 06/21/18) promethazine (Verified Allergy, Unknown, 06/21/18) Vitals & I&Os Vital Signs Date Time Temp Pulse Resp B/P (MAP) Pulse Ox O2 Delivery O2 Flow Rate FiO2 06/22/18 08:38 98.7 80 18 118/55 (76) 97 Room Air General Appearance: Alert, Oriented X3, Cooperative HEENT: PERRLA, EOMI Respiratory: Clear to Auscultation, Normal Air Movement Cardiovascular: Regular Rate, No Murmurs Abdominal: Normal Bowel Sounds, Other (Tenderness on right quadrant with deep palpation) Extremities: No Clubbing, No Cyanosis, No Edema Skin: No Rashes Neuro: Normal Gait Psych/Mental Status: Mental Status NL Hospital Course Was the Problem List Reviewed?: Yes Pending Labs Laboratory Tests 06/22/18 05:57: White Blood Count 11.8, Red Blood Count 4.21, Hemoglobin 12.2, Hematocrit 36, Mean Corpuscular Volume 86, Mean Corpuscular Hemoglobin 29, Mean Corpuscular Hemoglobin Concent 34, Red Cell Distribution Width 13.5, Platelet Count 185, Mean Platelet Volume 11.9, Neutrophils (%) (Auto) 77, Lymphocytes (%) (Auto) 16 , Monocytes (%) (Auto) 7, Eosinophils (%) (Auto) 0, Basophils (%) (Auto) 0, Neutrophils # (Auto) 9.1, Lymphocytes # (Auto) 1.8, Monocytes # (Auto) 0.8, Eosinophils # (Auto) 0.0, Basophils # (Auto) 0.0, Sodium Level 136, Potassium Level 3.5, Chloride Level 107, Carbon Dioxide Level 22, Anion Gap 7, Blood Urea Nitrogen 11, Creatinine 0.71, Estimat Glomerular Filtration Rate > 60, BUN/ Creatinine Ratio 15, Glucose Level 89, Calcium Level 8.7, Corrected Calcium 9.1 , Total Bilirubin 0.8, Aspartate Amino Transf (AST/SGOT) 15, Alanine Aminotransferase (ALT/SGPT) 18, Alkaline Phosphatase 63, Total Protein 5.5, Albumin 3.[address] and Ultrasound both reviewed Discussion & Recommendations We will discharge Ms. Narvaez with her pain medication. She was instructed to call for a follow up appointment on Sunday. Also, instructed to return to hospital with increased pain not controlled with medication. Discharge Condition at discharge Improved and stable Instructions to patient/family Please see electronic discharge instructions given to patient. Discharge Medications Reviewed and agree with Discharge Medication list on patient's Discharge Instruction sheet KRIS ALVES DO Jun 22, 2018 11:39
--- NOTE | 2018-06-22 11:52 | NUR ---
verbal orders received to give Motrin 800mg and Percocet 10mg p.o. prior to dismissal to home from .
--- NOTE | 2018-06-22 11:52 | Discharge Inst-Women's Service ---
Discharge Inst-Women's Serv Depart Medication/Instructions New, Converted or Re-Newed RX: RX Given to Pt/Family Instructions No strenuous activities, no heavy lifting Final Diagnosis Pelvic Pain 2. Large Ovarian Cyst Consults/Follow Up Additional Follow Up: Yes (Call office on Sunday06/24/2018 for an immediate follow up appointment. ) Activity Activity: Activity as Tolerated (No strenuous activities or heavy lifting) NO SMOKING: NO SMOKING Nothing Inside Vagina: No Douching, No [place], No Tampons Diet Discharge Diet: Regular Diet Return to The Hospital For: Increase pain, not controlled by oral medications Symptoms to Report to : Pain Increased For Any Problems or Questions: Contact Your Physician Skin/Wound Care Bathing Instructions: KRIS De Los Santos DO Jun 22, 2018 11:52
[2018-06-22] MEDS ORDERED: IBUPROFEN 800 MG (MOTRIN) TAB PO ONE (12:00)
[2018-06-22] MEDS ORDERED: oxyCODONE/APAP 10/325MG (PERCOCET 10) TABLET PO ONE (12:00)
[2018-06-22] MEDS ORDERED: IBUP-1780 PO (12:00)
[2018-06-22] MEDS ORDERED: OXYC1TAB12 PO (12:01)
--- NOTE | 2018-06-22 12:23 | NUR ---
Dismissal instructions given, verbalizes understanding. reviewed Rx's and administration schedule. instructed pt to call for follow up appointment. signature page signed, placed on chart. Percocet 10mg 1 tab and Motrin 800mg p.o. given per Dr's orders prior to dismissal. see eMar for further.
--- NOTE | 2018-06-22 12:35 | NUR ---
pt dismissed to private vehicle via w/c with this RN and sister @ side. pt stable with no sx's of distress noted.
--- NOTE | 2018-06-22 17:23 | Diagnostic Imaging Report ---
EXAMINATION: Ultrasound pelvis DATE: June 22, 2018. INDICATION: 37-year-old female, history of right flank pain.. COMPARISON: CT abdomen and pelvis June 21, 2018.. TECHNIQUE: A sonogram of the pelvis was performed utilizing transabdominal and endovaginal approaches assessing genao-scale appearance and color Doppler flow. FINDINGS: The uterus measures 9.8 x 6.3 x 4.8 cm. There are nabothian cysts. The endometrium measures 0.7 cm in diameter. The right ovary may be deviated from its expected position more to the left. The right ovary is measured at 9.4, 10.7 x 4.7 cm in size. There is a complex heterogeneous attenuation right ovarian mass measuring roughly 10.0 x 5.0 cm in size. There is internal blood flow. The left ovary measures 4.5 cm x 4.7 cm x 2.6 cm. There are nearly anechoic left ovarian lesions which may relate to left ovarian cysts. There appears to be blood flow to both ovaries. There is a trace amount of free pelvic fluid. IMPRESSION: 1. Complex and potentially solid adnexal mass which may be arising from an abnormally displaced right ovary. This is concerning for possible malignancy. Gynecologic consult is recommended. 2. Probable benign left ovarian cysts. 3. No abnormal thickening of the endometrium. 4. Trace amount of free pelvic fluid. Dictated by: Dictated on workstation # [id number]
[2018-06-22] MEDS ORDERED: SERTRALINE 50 MG (ZOLOFT) TABLET PO SCH (21:00)
== END 2018-06-22 12:35 | disposition home or self-care (01) ==
LOC: EDUNIT# 19:06 → ER 19:08 → WS 21:35 → UNDOADMIN 21:35 → WS 22:00 → UNDODISIN 06-22 12:35
PROVIDERS: ADMIT Obstetrics & Gynecology; ATTEND Obstetrics & Gynecology
DX: N83.201 Unspecified ovarian cyst, right side (principal); I10 Essential (primary) hypertension; F41.9 Anxiety disorder, unspecified; F32.9 Major depressive disorder, single episode, unspecified; Z87.442 Personal history of urinary calculi
CPT/HCPCS: 36415; 74018; 74176; 76830; 76856; 80053; 80306; 81000; 82150; 83690; 84703; 85007; 85025; 85027; 85610; 85730; 96361; 96374; 96375; 96376; G0378

== ENCOUNTER 2018-07-06 13:38 | Emergency (ER) | payer BC ==
[~2018-07-06] VITALS: Ht 175.3 cm; Wt 102.1 kg
[~2018-07-06 13:38] MED LIST changes: +IBUP-1780 PO; +LISI10TA2; +OXYC1TAB12 PO; +SERT50TA9
[2018-07-06] MEDS ORDERED: CEPHALEXIN 250 MG (KEFLEX) CAP PO ONE (14:15)
--- NOTE | 2018-07-06 14:15 | ED Integumentary General ---
General Chief Complaint: Skin/Wound Problems Stated Complaint: POST OP WOUND CHECK History of Present Illness Date Seen by Provider: Jul 06, 2018 Time Seen by Provider: 13:55 This is a 37-year-old female who is postop day #11 status post open excision of an ovarian mass at outside hospital. She has had small amounts of drainage from her wound but today had a larger amount of drainage. She called her doctor who recommended she get evaluated at the emergency department. Her pain has steadily been improving since her surgery. She is not having any fever or chills. Allergies and Home Medications Allergies Coded Allergies: metoclopramide (Verified Allergy, Unknown, 06/21/18) prochlorperazine (Verified Allergy, Unknown, 06/21/18) promethazine (Verified Allergy, Unknown, 06/21/18) Home Medications Ibuprofen 800 Mg Tablet, 800 MG PO Q6H PRN for PAIN-MILD TO MODERATE Prescribed by: KRIS ALVES on 06/22/18 1200 Ondansetron 4 Mg Tab.rapdis, 4 MG PO Q6H PRN for NAUSEA/VOMITING Prescribed by: BOBBY PAGAN on 06/21/18 1306 Oxycodone HCl/Acetaminophen 1 Each Tablet, 1 TAB PO Q6H PRN for PAIN-MODERATE TO SEVERE Prescribed by: KRIS ALVES on 06/22/18 1201 Patient Home Medication List Home Medication List Reviewed: Yes Review of Systems Review of Systems Constitutional: no symptoms reported EENTM: no symptoms reported Respiratory: no symptoms reported Cardiovascular: no symptoms reported Gastrointestinal: no symptoms reported Genitourinary: no symptoms reported Musculoskeletal: no symptoms reported Skin: see HPI Psychiatric/Neurological: No Symptoms Reported Endocrine: No Symptoms Reported Hematologic/Lymphatic: No Symptoms Reported Past Hzbqiee-Vmaufs-Pvrnzh Hx Past Med/Social Hx: Reviewed Nursing Past Med/Soc Hx Patient Social History 2nd Hand Smoke Exposure: No Recent Foreign Travel: No Contact w/Someone Who Travel: No Recent Hopitalizations: No Immunizations Up To Date Tetanus Booster (TDap): Unknown Seasonal Allergies Seasonal Allergies: No Past Medical History Surgeries: Yes (COMPLETE COLECTOMY FOR TOXIC MEGACOLON; KIDNEY STONE REMOVAL) Abdominal, Appendectomy, Bowel Surgery, Renal Respiratory: No Cardiac: Yes Hypertension Neurological: No Reproductive Disorders: Yes Female Reproductive Disorders: Ovarian Cyst, Polycystic Ovarian Dis Genitourinary: Yes Kidney Stones Gastrointestinal: Yes (TOXIC MEGACOLON-S/P COMPLETE COLECTOMY AND APPY) Musculoskeletal: No Endocrine: No HEENT: No Cancer: No Psychosocial: Yes Anxiety, Depression Integumentary: No Blood Disorders: No Family Medical History No Pertinent Family Hx Physical Exam Vital Signs Capillary Refill : General Appearance: no apparent distress HEENT: normal ENT inspection Neck: supple Cardiovascular: normal peripheral pulses, regular rate, rhythm Respiratory: lungs clear Gastrointestinal: other (there is mild tenderness primarily in the left lower quadrant, there is no rebound or rigidity or guarding. There is no palpable subcutaneous fluid collection. In the midline there is a suprapubic surgical incision with superficial D has since of the complete wound. There is a small amount of purulent discharge present at the surface. There is no significant surrounding redness other than mild erythema in the shape of the Steri-Strips. The superior Steri-Strips and tissue adhesive are already unattached.) Neurologic/Psychiatric: alert, normal mood/affect Skin: warm/dry Progress/Results/Core Measures Results/Orders My Orders Orders - HAROON CRUZ DO Cephalexin Capsule (Keflex Capsule) (07/06/18 14:15) Progress Progress Note : Progress Note This is a well-appearing 37-year-old female postop day #11 status post open excision of an ovarian mass. She has wound dehiscence. There is no evidence on my exam of peritonitis or subcutaneous fluid collection, only has localized tenderness around the wound. I do not suspect necrotizing fasciitis. For these reasons imaging is not indicated at this time. Patient had her surgeon's phone number available for me to touch base. I notified her of my findings, she agreed with Keflex, removing the remaining Steri-Strips and tissue adhesive, continuing the abdominal binder, and following up in the office. We gently irrigated the wound with sterile saline. We applied a sterile petroleum gauze and ABD pads. The abdominal binder was replaced. First dose of Keflex given in the emergency department, I prescribed 500 mg 4 times a day for 10 days. She will return for any new or worsening symptoms. Departure Impression Primary Impression: Wound dehiscence Additional Impression: Abdominal wall cellulitis Disposition: 01 HOME, SELF-CARE Condition: Stable Departure-Patient Inst. Referrals: ABELINO KHAN MD (PCP/Family) Primary Care Physician Patient Instructions: Wound Dehiscence (DC) Scripts Cephalexin (Cephalexin) 500 Mg Tablet 500 MG PO QID for 10 Days, #40 TAB 0 Refills Prov: HAROON CRUZ DO 07/06/18 HAROON CRUZ DO Jul 06, 2018 14:15
[2018-07-06] MEDS ORDERED: CEPH500T PO (14:16)
[2018-07-06 14:22] VITALS: BP 121/80
== END 2018-07-06 14:22 | disposition home or self-care (01) ==
LOC: EDUNIT# 13:38 → ER FS 13:40
DX: T81.31XA Disruption of external operation (surgical) wound, not elsewhere classified, initial encounter (principal); L03.311 Cellulitis of abdominal wall; F41.9 Anxiety disorder, unspecified; F32.9 Major depressive disorder, single episode, unspecified; I10 Essential (primary) hypertension; Z88.8 Allergy status to other drugs, medicaments and biological substances; Z90.49 Acquired absence of other specified parts of digestive tract; Z87.448 Personal history of other diseases of urinary system; Z87.442 Personal history of urinary calculi

== ENCOUNTER → 2019-09-05 | Outpatient (CLI) | payer BC ==
[~2019-09-05] MED LIST changes: +CEPH500T PO
[2019-09-05 14:25] LABS: EOSINOPHILS % (AUTO) 4 % (0-10); HEMATOCRIT 42 % (35-52); HEMOGLOBIN 13.6 G/DL (11.5-16.0); LYMPHOCYTES % (AUTO) 24 % (12-44); MEAN CORPUSCULAR HEMOGLOBIN 27 PG (25-34); MEAN CORPUSCULAR HGB CONC 33 G/DL (32-36); MEAN CORPUSCULAR VOLUME 84 FL (80-99); MEAN PLATELET VOLUME 10.8 FL (7.4-10.4); MONOCYTES % (AUTO) 5 % (0-12); PLATELET COUNT 217 10^3/uL (130-400); RED CELL DISTRIBUTION WIDTH 13.2 % (10.0-14.5); WHITE BLOOD COUNT 8.9 10^3/uL (4.3-11.0)
[2019-09-05 14:26] LABS: BASOPHILS # (AUTO) 0.1 10^3/uL (0.0-0.1); BASOPHILS % (AUTO) 1 % (0-10); EOSINOPHILS # (AUTO) 0.4 10^3/uL (0.0-0.3); LYMPHOCYTES # (AUTO) 2.1 X 10^3 (1.0-4.0); MONOCYTES # (AUTO) 0.5 X 10^3 (0.0-1.0); NEUTROPHILS # (AUTO) 5.8 X 10^3 (1.8-7.8); NEUTROPHILS % (AUTO) 66 % (42-75)
[2019-09-05 15:28] LABS: ALANINE AMINOTRANSFERASE 21 U/L (0-55); ALBUMIN 4.2 GM/DL (3.2-4.5); ALKALINE PHOSPHATASE 86 U/L (40-136); BILIRUBIN,TOTAL 0.3 MG/DL (0.1-1.0); BUN/CREATININE RATIO 13; CALCIUM 9.5 MG/DL (8.5-10.1); CARBON DIOXIDE 27 MMOL/L (21-32); CHLORIDE 99 MMOL/L (98-107); CREATININE SERUM 0.71 MG/DL (0.60-1.30); GFR ESTIMATED > 60; GLUCOSE 111 MG/DL (70-105); POTASSIUM 4.1 MMOL/L (3.6-5.0); SODIUM 137 MMOL/L (135-145); TOTAL PROTEIN 6.9 GM/DL (6.4-8.2)
== END ==
LOC: LAB FS 13:57
PROVIDERS: ATTEND Family Medicine
DX: R10.31 Right lower quadrant pain (principal)
CPT/HCPCS: 36415; 80053; 85025

== ENCOUNTER → 2019-09-15 | Outpatient (CLI) | payer BC ==
[~2019-09-15] MED LIST changes: +CATHETER FLUSH 10 ML SYR IV PRN; +HOLD METFORMIN - RECEIVED CONTRAST 20 ML VIAL IV SCH; +IOHEXOL 350 MG/ML 100 ML (OMNIPAQUE 350) VIAL IV ONE; +NS 100 ML (IVPB) BAG IV ONE
--- NOTE | 2019-09-15 16:07 | Diagnostic Imaging Report ---
PROCEDURE: CT abdomen and pelvis with contrast. TECHNIQUE: Multiple contiguous axial images were obtained through the abdomen and pelvis after administration of intravenous contrast. Auto Exposure Controls were utilized during the CT exam to meet ALARA standards for radiation dose reduction. INDICATION: Right lower quadrant abdominal pain for three weeks. COMPARISON: Comparison is made with prior CT of 06/21/2018. FINDINGS: The lung bases are clear. No discrete liver mass is detected. The gallbladder is unremarkable. No biliary ductal dilatation is identified. The pancreas and spleen are unremarkable. No adrenal mass is detected. There appears to be a tiny nonobstructing calculus in the lower pole of the right kidney. No hydronephrosis is detected. Aorta is nonaneurysmal. There appear to be postsurgical changes of a colectomy. Visualized small bowel loops are normal in caliber. No obstruction is identified. There is no free fluid or fluid collection. Previously noted mass in the pelvis is no longer visualized and may have been surgically removed. There is a cyst involving the left ovary measuring 3.7 cm. Uterus is unremarkable. Bladder is decompressed. No inflammatory changes are seen. No abdominal or pelvic lymphadenopathy is detected. Bony structures are nonacute. IMPRESSION: 1. 3.7 cm left ovarian cyst. 2. No acute feature in the abdomen or pelvis is detected. 3. Tiny nonobstructing right renal calculus. Dictated by: Dictated on workstation # [id number]
== END ==
LOC: RAD FS 14:22
PROVIDERS: ATTEND Family Medicine
DX: N83.202 Unspecified ovarian cyst, left side (principal); N20.0 Calculus of kidney
CPT/HCPCS: 74177

== ENCOUNTER → 2019-09-25 | Outpatient (CLI) | payer BC ==
[~2019-09-25] MED LIST changes: -CATHETER FLUSH 10 ML SYR IV PRN; -HOLD METFORMIN - RECEIVED CONTRAST 20 ML VIAL IV SCH; -IOHEXOL 350 MG/ML 100 ML (OMNIPAQUE 350) VIAL IV ONE; -NS 100 ML (IVPB) BAG IV ONE
== END ==
LOC: LAB FS 08:46
PROVIDERS: ATTEND Family Medicine
DX: N80.9 Endometriosis, unspecified (principal)
CPT/HCPCS: 36415; 80061; 84443

== ENCOUNTER → 2020-01-12 | Outpatient (CLI) | payer BC | LOC: LAB FS 10:06 | PROVIDERS: ATTEND Family Medicine | DX: J02.9 Acute pharyngitis, unspecified (principal); Z20.828 Contact with and (suspected) exposure to other viral communicable diseases | CPT/HCPCS: 87635 ==